=== PATIENT | male | born 1990 | race Caucasian/White ===

== ENCOUNTER 2017-10-29 09:34 | Emergency (ER) | payer MEDICAID ==
[~2017-10-29] VITALS: Ht 175.3 cm; Wt 72.5 kg
[2017-10-29 10:30] VITALS: BP 123/77
== END 2017-10-29 11:31 | disposition home or self-care (01) ==
LOC: ED 09:59
DX: T40.1X1A Poisoning by heroin, accidental (unintentional), initial encounter (principal); F11.10 Opioid abuse, uncomplicated; Y92.9 Unspecified place or not applicable
CPT/HCPCS: 99283

== ENCOUNTER 2017-11-10 20:28 | Emergency (ER) | payer MEDICAID ==
[~2017-11-10] VITALS: Ht 177.8 cm; Wt 60.0 kg
[2017-11-10 20:29] VITALS: BP 137/73
== END 2017-11-10 20:58 | disposition left against medical advice (07) ==
LOC: ED 20:52
DX: T40.1X1A Poisoning by heroin, accidental (unintentional), initial encounter (principal); F17.200 Nicotine dependence, unspecified, uncomplicated; X58.XXXA Exposure to other specified factors, initial encounter; Y93.89 Activity, other specified; Y92.89 Other specified places as the place of occurrence of the external cause; Y99.8 Other external cause status
CPT/HCPCS: 99283

== ENCOUNTER 2018-11-29 19:23 | Emergency (ER) | payer MEDICAID ==
[~2018-11-29] VITALS: Ht 175.3 cm; Wt 72.4 kg
--- NOTE | 2018-11-29 20:42 | NUR ---
fitting room operator: Patient to room from lobby at this time
--- NOTE | 2018-11-29 20:57 | NUR ---
PATIENT IS RESTING IN HOSPITAL BED. VITALS TAKEN. PATIENT HAS NO REQUESTS AT THIS TIME.
--- NOTE | 2018-11-29 20:59 | NUR ---
PT PRESENTED WITH C/O N/V/D SINCE TODAY, DENIES ANY FEVER/CHILLS. RLQ ABD PAIN. MONITORS APPLIED, SIDERAILS UP X2, CALL LIGHT WITHIN REACH
[2018-11-29] MEDS ORDERED: ONDANSETRON ODT 4 MG ONE (21:49)
[2018-11-29 21:50] VITALS: BP 134/77
--- NOTE | 2018-11-29 21:50 | NUR ---
PT MEDICATED PER MAR
[2018-11-29] MEDS ORDERED: ONDANSETRON ODT 4 MG PO ONE (22:00)
[2018-11-29 22:21] LABS: BASOPHILS # (AUTO) 0.06 x10^3/uL (0-0.1); BASOPHILS % (AUTO) 1 % (0-1); EOSINOPHILS # (AUTO) 0.06 x10^3/uL (0-0.4); EOSINOPHILS % (AUTO) 1 % (1-7); LYMPHOCYTES # (AUTO) 1.73 x10^3/uL (1-3.4); LYMPHOCYTES % (AUTO) 14 % (22-44); MD NO; MEAN CORPUSCULAR HEMOGLOBIN 30.4 pg (27.5-34.5); MEAN CORPUSCULAR HGB CONC 33.8 g/dL (33.2-36.2); MEAN CORPUSCULAR VOLUME 90.1 fL (81-97); MEAN PLATELET VOLUME 7.2 fL (7.4-10.4); MONOCYTES # (AUTO) 1.01 x10^3/uL (0.2-0.8); MONOCYTES % (AUTO) 8 % (2-9); NEUTROPHILS # (AUTO) 9.34 x10^3/uL (1.8-6.8); NEUTROPHILS % (AUTO) 77 % (42-75); PLATELET COUNT 285 x10^3/uL (130-400); RED BLOOD COUNT 5.29 x10^6/uL (4.38-5.82)
--- NOTE | 2018-11-29 22:28 | NUR ---
PT IN [facility] STATED " I HAVE TO LEAVE TO CATCH MY BUS", INFORMED PT THAT I WOULD NOTIFY ERP, PT STATED " I CAN'T WAIT I'LL SIGN MYSELF OUT". PT SIGNED AMA FORM, COPY PLACED IN PT'S CHART, ERP UPDATED
[2018-11-29 22:29] LABS: ALANINE AMINOTRANSFERASE 60 U/L (12-78); ALBUMIN 4.2 g/dL (3.4-5.0); ANION GAP 10 mmol/L (5-15); CALCIUM 8.9 mg/dL (8.5-10.1); CHLORIDE 108 mmol/L (98-107); CREATININE 0.91 mg/dL (0.7-1.3)
[2018-11-29 22:31] LABS: ALKALINE PHOSPHATASE 90 U/L (45-117); BILIRUBIN,TOTAL 0.5 mg/dL (0.2-1.0); TOTAL PROTEIN 8.4 g/dL (6.4-8.2)
== END 2018-11-29 22:34 | disposition left against medical advice (07) ==
LOC: ED 22:15
DX: A09 Infectious gastroenteritis and colitis, unspecified (principal)
CPT/HCPCS: 36415; 80053; 83690; 85025; 99283; Q0162

== ENCOUNTER 2019-07-18 22:18 | Emergency (ER) | payer MEDICAID ==
[~2019-07-18] VITALS: Ht 175.3 cm; Wt 70.8 kg
[2019-07-18 22:20] VITALS: BP 120/75
[2019-07-18 23:37] LABS: MICROSCOPIC AUTO
[2019-07-18] MEDS ORDERED: AZITHROMYCIN 250 MG TABLET ONE (23:46)
[2019-07-18] MEDS ORDERED: CEFTRIAXONE 250 MG ONE (23:46)
[2019-07-19] MEDS ORDERED: CEFTRIAXONE 250 MG IM ONE
[2019-07-19] MEDS ORDERED: AZITHROMYCIN 500 MG TABLET PO ONE
== END 2019-07-19 00:26 | disposition home or self-care (01) ==
LOC: ED 23:50
DX: A74.9 Chlamydial infection, unspecified (principal); A54.9 Gonococcal infection, unspecified
CPT/HCPCS: 81001; 87086; 87491; 87591; 96372; 99283; J0696